=== PATIENT | female | born 1985 | race Caucasian/White ===

== ENCOUNTER 2016-11-17 17:17 | Emergency (ER) ==
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
[2016-11-17 19:23] VITALS: BP 124/85
[2016-11-17] MEDS ORDERED: XYLOCAINE-MPF 1% INJ ONE (19:40)
[2016-11-17] MEDS ORDERED: ROCEPHIN IM ONE (19:40)
[2016-11-17] MEDS ORDERED: ZITHROMAX PO ONE (19:41)
[2016-11-17] MEDS ORDERED: ZITHROMAX ONE (19:53)
--- NOTE | 2016-11-17 22:19 | Diag Imaging Result Document ---
PROCEDURE NAME: US PELVIC NON-CLINICAL INFORMATICS DIRECTOR COMPLETE - 11/17/2016 STUDY: Transvaginal pelvic ultrasound. The uterus measures 6.7 x 4.6 x 2.9 cm. Mild thickening to the endometrium with the two amaro combined measuring 10 mm. No other uterine abnormality. The right ovary measures 3.6 cm in length and contains a 1.8 cm cyst. The left ovary measures 4.6 cm in length and contains two cysts measuring at least 3 cm. No free fluid. There are bowel loops containing fluid in the pelvis. IMPRESSION: 1. Bilateral ovarian cysts. 2. Mild endometrial thickening. A preliminary report was given at the time of the exam.
== END 2016-11-17 20:14 | disposition home or self-care (01) ==
LOC: P.ED 17:17
DX: N83.202 Unspecified ovarian cyst, left side (principal); R10.31 Right lower quadrant pain; R10.33 Periumbilical pain; R11.0 Nausea; N93.9 Abnormal uterine and vaginal bleeding, unspecified; N89.8 Other specified noninflammatory disorders of vagina; R10.814 Left lower quadrant abdominal tenderness; R10.815 Periumbilic abdominal tenderness; Z87.42 Personal history of other diseases of the female genital tract
CPT/HCPCS: 76856; 81025; 87210; 96372; J0696